=== PATIENT | male | born 1960 | race Caucasian/White ===

== ENCOUNTER 2016-10-25 11:10 | Inpatient (IN) | payer OTHER ==
[~2016-10-25] VITALS: Ht 172.7 cm; Wt 62.5 kg
[~2016-10-25 11:10] MED LIST: ALBU8.5H3 INH; AMLO5TAB4 PO; AZIT500T3 PO; BENZ100C70 PO; NEPH PO; NIFE60TA12 PO; SEVE800T10 PO
--- NOTE | 2016-10-25 12:58 | RADRPT ---
PROCEDURE: XR Chest. CLINICAL INDICATION: Chest pain TECHNIQUE: Single frontal view of the chest was obtained COMPARISON: 10/10/16 FINDINGS: The heart is enlarged. The thoracic aorta is calcified. There is mild pulmonary vascular congestion. There is no pleural effusion or pneumothorax. RPTAT: AA IMPRESSION: Mild to moderate cardiomegaly. Calcified aorta consistent with atherosclerotic disease. Mild pulmonary vascular congestion. .Vinicio Steward MD, MD Date Time Electronically viewed and signed by .Vinicio Steward MD, on 10/25/2016 12:58 .S/
[2016-10-25 13:12] LABS: BASOPHILS % 0.7 % (0.0-2.0); EOSINOPHILS # 0.1 10^3/ul (0.0-0.5); EOSINOPHILS % 1.5 % (0.0-7.0); HEMATOCRIT 32.1 % (42.0-52.0); HEMOGLOBIN 10.6 g/dl (14.0-18.0); LYMPHOCYTES # 0.9 10^3/ul (0.8-2.9); LYMPHOCYTES % 17.6 % (15.0-51.0); MEAN CORPUSCULAR HEMOGLOBIN 30.9 pg (29.0-33.0); MEAN CORPUSCULAR HGB CONC 33.1 g/dl (32.0-37.0); MEAN CORPUSCULAR VOLUME 93.4 fl (82.0-101.0); MEAN PLATELET VOLUME 7.9 fl (7.4-10.4); MONOCYTE # 0.5 10^3/ul (0.3-0.9); MONOCYTES % 9.2 % (0.0-11.0); NEUTROPHIL # 3.8 10^3/ul (1.6-7.5); PLATELET COUNT 81 10^3/UL (140-440); RED BLOOD COUNT 3.44 10^6/ul (4.70-6.10); RED CELL DISTRIBUTION WIDTH 16.3 % (11.5-14.5); UNCORRECTED WBC 5.4 10^3/ul (4.8-10.8); WHITE BLOOD COUNT 5.4 10^3/ul (4.8-10.8)
[2016-10-25 13:18] LABS: CONDITION 1; LH ANALYZER COMMENTS 1
[2016-10-25 13:21] LABS: ALBUMIN 4.1 g/dl (3.3-4.9); INR 1.11; POTASSIUM 4.5 mmol/L (3.5-5.1); PROTIME 14.3 Sec (12.2-14.2); PT RATIO 1.1
[2016-10-25 13:22] LABS: PARTIAL THROMBOPLASTIN TIME 37.5 Sec (25.0-35.0)
[2016-10-25 13:23] LABS: CREATININE 6.32 mg/dl (0.61-1.24)
[2016-10-25 13:24] LABS: ALBUMIN/GLOBULIN RATIO 0.85; TOTAL PROTEIN 8.9 g/dl (6.1-8.1)
[2016-10-25 13:25] LABS: CALCIUM 8.8 mg/dl (8.4-10.2)
[2016-10-25] MEDS ORDERED: DILTIAZEM-D5W 125MG/125ML DRIP 125 ML IV SCH (13:30)
[2016-10-25] MEDS ORDERED: DILTIAZEM 25 MG INJ IV ONE (13:30)
[2016-10-25] MEDS ORDERED: SOD CHLORIDE 0.9% 500 ML IV ONE (13:30)
[2016-10-25 13:39] LABS: TROPONIN-I 0.086 ng/ml (0.00-0.12)
--- NOTE | 2016-10-25 14:45 | ERA ---
ER Documentation Chief Complaint Date/Time DATE: 10/25/16 TIME: 14:39 Chief Complaint intermittent coughing, hx dialysis, seen here prior for same unresolved HPI Patient is a 56-year-old male who reports with a cough for the last month that is unresolved. It is a dry nonproductive cough for which she has been treated with some kind of cough syrup. He ran out of the cough syrup and is not improved so he comes back to the emergency department for reevaluation. He says he has seen his primary care physician and has received some kind of antibiotic which also did not help. He states he has not had a fever, chest congestion, sputum production, dyspnea, sore throat, or otalgia. He also denies any chest pain, palpitations, peripheral edema, or chest trauma. He says sometimes he does have dyspnea on exertion but it is not consistent. He has not missed any of his dialysis sessions. And the remainder of the systems are negative. ROS All systems reviewed and are negative except as per history of present illness. Medications Home Meds Active Scripts Benzonatate* (Tessalon Perle*) 100 Mg Capsule, 100 MG PO Q8H Y for COUGH, #30 CAP Prov:AUSTIN SERRATO PA-C 10/10/16 Albuterol Sulfate* (Proair HFA*) 8.5 Gm Hfa.aer.ad, 2 PUFF INH Q6H Y for WHEEZING AND SOB, #1 INHALER Prov:GENEVIEVE AGUILAR MD 09/26/16 Azithromycin* (Zithromax*) 500 Mg Tablet, 500 MG PO DAILY for 4 Days, TAB Prov:GENEVIEVE AGUILAR MD 09/26/16 Reported Medications Amlodipine Besylate* (Norvasc*) 5 Mg Tablet, 5 MG PO DAILY, TAB 09/26/16 Nifedipine* (Nifedical XL*) 60 Mg/Bottle Tab.osm.24, 60 MG PO BID, TAB 04/12/16 Sevelamer Hcl* (Renagel*) 800 Mg Tablet, 3200 MG PO WITH MEALS, TAB 03/23/15 Multivit/Ca Carb/B Cmplx/Fa* (Angelica-Janette*) 1 Tab Tab, 1 TAB PO DAILY, TAB 03/23/15 Allergies Allergies: Coded Allergies: No Known Allergy (Unverified , 09/26/16) PMhx/Soc History of Surgery: Yes (fistula placement) Anesthesia Reaction: No Hx Neurological Disorder: No Hx Respiratory Disorders: No Hx Cardiac Disorders: Yes (HTN) Hx Psychiatric Problems: No Hx Miscellaneous Medical Probl: Yes (ESRD W/ DIALYSIS-[facility] Hx Alcohol Use: No Hx Substance Use: No Hx Tobacco Use: No Smoking Status: Former smoker FmHx Family History: coronary disease Physical Exam Vitals Vital Signs Date Time Temp Pulse Resp B/P Pulse Ox O2 Delivery O2 Flow Rate FiO2 10/25/16 14:50 97.8 114 20 128/96 100 Nasal Cannula 1.0 10/25/16 14:34 97.8 127 20 121/88 100 Nasal Cannula 1.0 10/25/16 13:15 97.8 115 20 124/92 100 Nasal Cannula 1.0 10/25/16 13:00 Nasal Cannula 1 10/25/16 11:17 97.8 133 20 117/73 100 Physical Exam Const: Well-developed well-nourished male sitting on the bed with no evidence for respiratory distress Head: Atraumatic normocephalic Eyes: Normal Conjunctiva ENT: Normal External Ears, Nose and Mouth. Neck: Full range of motion..~ No meningismus. No JVD noted Resp: Clear to auscultation bilaterally, no tachypnea, nasal flaring, or retractions noted. Cardio: Patient is noted to be tachycardic with an irregular rhythm most consistent with atrial fibrillation Abd: Soft, non tender, non distended. Normal bowel sounds Skin: No petechiae or rashes Back: No midline or flank tenderness Ext: No cyanosis, or edema, skin appears dry Neur: Awake and alert Psych: Normal Mood and Affect Result Diagram: 10/25/16 1300 10/25/16 1300 Results 24 hrs Laboratory Tests Test 10/25/16 13:00 10/25/16 13:01 Activated Partial Thromboplast Time 37.5Sec Alanine Aminotransferase (ALT/SGPT) 67IU/L Albumin 4.1g/dl Albumin/Globulin Ratio 0.85 Alkaline Phosphatase 113IU/L Anion Gap 22 Aspartate Amino Transf (AST/SGOT) 71IU/L Basophils # 0.010^3/ul Basophils % 0.7% Blood Morphology Comment Blood Urea Nitrogen 34mg/dl Calcium Level 8.8mg/dl Carbon Dioxide Level 30mmol/L Chloride Level 96mmol/L Creatinine 6.32mg/dl Direct Bilirubin 0.00mg/dl Eosinophils # 0.110^3/ul Eosinophils % 1.5% Globulin 4.80g/dl Glucose Level 92mg/dl Hematocrit 32.1% Hemoglobin 10.6g/dl INR International Normalized Ratio 1.11 Indirect Bilirubin 0.0mg/dl Lymphocytes # 0.910^3/ul Lymphocytes % 17.6% Mean Corpuscular Hemoglobin 30.9pg Mean Corpuscular Hemoglobin Concent 33.1g/dl Mean Corpuscular Volume 93.4fl Mean Platelet Volume 7.9fl Monocytes # 0.510^3/ul Monocytes % 9.2% Neutrophils # 3.810^3/ul Neutrophils % 71.0% Nucleated Red Blood Cells # 0.010^3/ul Nucleated Red Blood Cells % 0.0/100WBC Platelet Count 8110^3/UL Potassium Level 4.5mmol/L Prothrombin Time 14.3Sec Prothrombin Time Ratio 1.1 Red Blood Count 3.4410^6/ul Red Cell Distribution Width 16.3% Sodium Level 143mmol/L Total Bilirubin 0.0mg/dl Total Protein 8.9g/dl Troponin I 0.086ng/ml White Blood Count 5.410^3/ul Bedside Glucose 92mg/dL Current Medications Medications (Trade) Dose Ordered Sig/Jitendra Route PRN Reason Start Time Stop Time Status Last Admin Dose Admin Sodium Chloride (NS) 500 ml @ 500 mls/hr Q1H ONCE IV 10/25/16 13:30 10/25/16 14:29 DC 10/25/16 13:29 Diltiazem HCl 16 mg 16 mg ONCE ONCE IV 10/25/16 13:30 10/25/16 13:31 DC Diltiazem HCl (Cardizem-D5W 125 Mg/125 ml Drip) 125 ml @ 5 mls/hr TITRATE IV 10/25/16 13:30 10/25/16 14:32 Procedures/MDM Medical decision making: Viral URI, bronchitis, pulmonary edema, atrial fibrillation with RVR, atypical ID, renal failure EKG: Rate/Rhythm: Atrial fibrillation with RVR, ventricular rate noted to be around 130 bpm QRS, ST, T-waves: No changes consistent w/ acute ischemia Impression: No evidence of ischemia 1443: Patient is currently on a diltiazem drip at 5 mg/h. His rate at this time is approximately 100-110 bpm. His blood pressure is stable systolically. I will consult his primary care physician to have him admitted to the hospital as his A. fib appears to be a new rhythm for him. Departure Diagnosis: Primary Impression: Cough Additional Impressions: Atrial fibrillation with rapid ventricular response End stage chronic kidney disease DILMA LOPEZ Oct 25, 2016 14:45
[2016-10-25 14:50] VITALS: TEMP 97.8
--- NOTE | 2016-10-25 16:15 | QN ---
Documentation Comment ESRD AFIB HTN ANEMIA PLAN PER ORDER CARDIOLOGY CONSULT MARCE CARDOZO MD Oct 25, 2016 16:15
[2016-10-25] MEDS ORDERED: METO-448 PO (16:18)
[2016-10-25] MEDS ORDERED: ATOR20TA38 PO (16:20)
[2016-10-25] MEDS ORDERED: HYDROCODONE/APAP (5/325) TAB PO PRN (16:30)
[2016-10-25] MEDS ORDERED: NACL 0.9% 3 ML SYG IV SCH (16:30)
[2016-10-25] MEDS ORDERED: ACETAMINOPHEN 325 MG TAB PO PRN (16:30)
[2016-10-25] MEDS ORDERED: ONDANSETRON 4 MG INJ IV PRN (16:30)
[2016-10-25] MEDS ORDERED: DOCUSATE SODIUM 100 MG CAP PO PRN (16:30)
[2016-10-25] MEDS ORDERED: ALBUTEROL HFA 8 GM INHALER INH PRN (16:30)
[2016-10-25 17:55] LABS: TROPONIN-I 0.081 ng/ml (0.00-0.12)
[2016-10-25 18:57] LABS: CK-MB 1.67 ng/ml (0.0-2.4)
[2016-10-25] MEDS ORDERED: HEPARIN 1000 UNITS/ML 10 ML INJ IV SCH (20:00)
[2016-10-25] MEDS ORDERED: HEPARIN 1000 UNITS/ML 10 ML INJ IV PRN (20:00)
[2016-10-25] MEDS ORDERED: DIGOXIN 500 MCG INJ IV ONE (20:00)
[2016-10-25] MEDS ORDERED: METOPROLOL 5 MG INJ IV PRN (20:00)
[2016-10-25] MEDS ORDERED: HEPARIN 1000 UNITS/ML 10 ML INJ IV ONE (20:00)
[2016-10-25 20:07] LABS: TROPONIN-I 0.086 ng/ml (0.00-0.12)
[2016-10-25 20:09] LABS: CK-MB 1.48 ng/ml (0.0-2.4)
[2016-10-25] MEDS: HEPARIN 25000 UNITS/D5W 250 ML IV SCH (20:15)
[2016-10-25 22:02] VITALS: PULSE 98
[2016-10-25] MEDS: METOPROLOL 50 MG TAB PO SCH (22:21)
[2016-10-25] MEDS: NIFEdipine (XL) 60 MG TAB PO SCH (22:21)
[2016-10-25 22:40] VITALS: BP 127/64; PULSE 121; RESP 18
[2016-10-25 23:23] LABS: CK-MB 1.82 ng/ml (0.0-2.4)
[2016-10-25 23:26] LABS: TROPONIN-I 0.173 ng/ml (0.00-0.12)
--- NOTE | 2016-10-25 23:43 | HP ---
Date/Time of Note Date/Time of Note DATE: 10/25/16 TIME: 23:40 Assessment/Plan VTE Prophylaxis VTE Prophylaxis Intervention: heparin Lines/Catheters IV Catheter Type (from Nrs): Peripheral IV Assessment/Plan Chief Complaint/Hosp Course AFIB HTN ESRD ANEMIA HX CABG PLAN PER ORDER CARDIO Problems: HPI/ROS Admit Date/Time Admit Date/Time Oct 25, 2016 at 16:29 ROS Constitutional: other (sob+) Eyes: no complaints ENT: no complaints Respiratory: shortness of breath (+) Cardiovascular: palpitations (+), No chest pain, No orthopenea Gastrointestinal: no complaints Genitourinary: no complaints Musculoskeletal: no complaints Skin: no complaints Neurologic: no complaints Endocrine: no complaints Lymphatic: no complaints Psychological: no complaints Immunologic: no complaints PMH/Family/Social Past Medical History Medical History: coronary artery disease, high cholesterol, hypertension, renal disease Past Surgical History Past Surgical Hx: other (cabg) Family History Significant Family History: no pertinent family hx Social History Alcohol Use: none Smoking Status: Former smoker Exam/Review of Systems Vital Signs Vitals Vital Signs Date Time Temp Pulse Resp B/P Pulse Ox O2 Delivery O2 Flow Rate FiO2 10/25/16 22:40 97.8 121 18 127/64 97 Room Air 10/25/16 20:00 2.0 28 Exam Constitutional: alert, oriented Psych: nl mood/affect, no complaints Head: atraumatic, normocephalic Eyes: EOMI, nl conjunctiva, nl lids ENMT: nl external ears & nose, nl lips & teeth, nl nasal mucosa & septum Neck: non-tender, supple Respiratory: clear to auscultation, normal air movement Cardiovascular: irregular rhythm Gastrointestinal: nl liver, spleen, non-tender, soft Genitourinary - Male: No CVA tenderness Musculoskeletal: nl extremities to inspection Extremities: normal pulses Neurological: CLINICAL NURSING INTERN II-XII intact, nl mental status, nl speech, nl strength Labs Result Diagram: 10/25/16 1300 10/25/16 1300 Medications Medications Current Medications Diltiazem HCl (Cardizem-D5W 125 Mg/125 ml Drip) 125 ml @ 5 mls/hr TITRATE IV Last administered on 10/25/16t 14:32; Admin Dose 5 MLS/HR; Start 10/25/16 at 13: 30 Acetaminophen (Tylenol Tab) 650 mg Q6H PRN PO PAIN LEVEL 1-3 OR FEVER; Start at 16:30 Acetaminophen/ Hydrocodone Bitart ([place] (5/325)) 1 tab Q6H PRN PO MODERATE PAIN LEVEL 4-6; Start 10/25/16 at 16:30 Docusate Sodium (Colace) 100 mg Q12H PRN PO CONSTIPATION; Start 10/25/16 at 16: 30 Pantoprazole (Protonix Tab) 40 mg DAILY@06 PO ; Start 10/26/16 at 06:00 Albuterol (Ventolin Hfa) 2 puff Q6H PRN INH WHEEZING AND SOB; Start 10/25/16 at 16:30 Benzonatate (Tessalon) 100 mg Q8H PRN PO COUGH; Start 10/25/16 at 16:30 Multivit/Ca Carb/ B Cmplx/FA/Prenat (Angelica-Janette) 1 tab DAILY PO ; Start 10/26/16 at 09:00 Nifedipine (Procardia Xl) 60 mg BID PO Last administered on 10/25/16 22:21; Admin Dose 60 MG; Start 10/25/16 at 21:00 Metoprolol Tartrate 50 mg 50 mg BID PO Last administered on 10/25/16 22:21; Admin Dose 50 MG; Start 10/25/16 at 21:00 Heparin Sodium (Porcine) (Heparin 05753 Units/250 ml) 250 ml @ 0 mls/hr Q24H IV Last administered on 10/25/16 20:15; Admin Dose 7.5 MLS/HR; Start 10/25/16 at 20:00 Heparin Sodium (Porcine) (Heparin (1000 Units/ml)) PRN PRN IV PENDING LAB VALUE; Start 10/25/16 at 20:00 Metoprolol Tartrate (Lopressor) 5 mg Q4H PRN IV HR>110 Hold SBP<100; Start 09/29 at 20:00 MARCE CARDOZO MD Oct 25, 2016 23:43
[2016-10-26] VITALS (18 sets, daily range): BP systolic 96–118; BP diastolic 54–77; PULSE 60–125; RESP 16–19; Ht 172.7 cm; Wt 62.5 kg
[2016-10-26] MEDS: ACETAMINOPHEN 325 MG TAB PO PRN ×2 (00:31→10:05)
[2016-10-26] MEDS: BENZONATATE 100 MG CAP PO PRN ×3 (01:04→21:00)
[2016-10-26 03:56] LABS: CK-MB 1.7 ng/ml (0.0-2.4); TROPONIN-I 0.316 ng/ml (0.00-0.12)
[2016-10-26] MEDS: HEPARIN 25000 UNITS/D5W 250 ML IV SCH (04:23)
[2016-10-26 04:52] LABS: CHOL/HDL RATIO 1.8 RATIO
[2016-10-26] MEDS: PANTOPRAZOLE (EC) 40 MG TAB PO SCH (05:12)
[2016-10-26] MEDS: METOPROLOL 50 MG TAB PO SCH ×2 (09:00→20:58)
[2016-10-26] MEDS ORDERED: ENOXAPARIN 30 MG/0.3 ML SYG SC SCH (09:00)
[2016-10-26] MEDS ORDERED: AMLODIPINE 5 MG TAB PO SCH (09:00)
[2016-10-26] MEDS: NIFEdipine (XL) 60 MG TAB PO SCH (09:00)
[2016-10-26] MEDS: MULTIVIT/CA CARB/B CMPLX/FA TAB PO SCH (09:56)
[2016-10-26] MEDS: SEVELAMER 800 MG TAB PO SCH ×3 (09:57→18:46)
--- NOTE | 2016-10-26 09:57 | CONS ---
DATE OF ADMISSION: 10/25/2016 DATE OF CONSULTATION: 10/25/2016 CARDIOLOGY CONSULTATION REASON FOR CONSULTATION: Atrial fibrillation, rapid ventricular response, history of cardiomyopathy , chest pain. REQUESTING PHYSICIAN: Don Cardozo MD HISTORY OF PRESENT ILLNESS: Mr. Ray is a 56-year-old male with a history of hypertension, non -ST elevation myocardial infarction in 04/2016, at which time he refused cardiac catheterization, en d-stage renal disease on hemodialysis, anemia requiring transfusions, recent coronary artery bypass graft surgery 06/2016 in [place], now presents with complaints of cough and associated chest pain wi th cough and associated shortness of breath. Upon arrival, temperature 97.8, blood pressure 113/73, pulse 133, respiratory rate 20, saturating 100%. The patient's labs showed white count 5.4, hemogl obin 10.6, platelet count 81. Sodium 142, potassium 4.5, creatinine 6.3, BUN 34. Troponin negative . AST 71, ALT 67. INR of 1.1. The patient underwent a chest x-ray revealing [id number] card iomegaly, calcified aorta, mild pulmonary vascular congestion. The patient's electrocardiogram reve aled rhythm most consistent with atrial fibrillation, rate of 116, normal axis, normal intervals, wi th nonspecific ____ diffusely. The patient subsequently has been treated with IV hydration, Diltiaz em ____ mg IV push x1 and has been placed on a Diltiazem drip. PAST MEDICAL HISTORY: As above in HPI. MEDICATIONS PRIOR TO ADMIT: 1. Norvasc 10 mg daily. 2. Atorvastatin 20 mg daily. 3. Metoprolol 25 mg p.o. b.i.d. 4. Renagel 3200 with meals. 5. Angelica-Janette. MEDICATIONS CURRENTLY IN HOSPITAL: 1. Lovenox ____ subQ daily. 2. Norvasc. 3. Angelica-Janette. 4. Renagel. 5. Protonix. 6. Procardia 60 mg p.o. b.i.d. 7. Tylenol. 8. Albuterol. 9. Zofran. 10. Diltiazem drip. ALLERGIES: NO KNOWN DRUG ALLERGIES. SOCIAL HISTORY: No tobacco, ETOH, or illicit drug use. FAMILY HISTORY: No history of sudden cardiac or early CAD. REVIEW OF SYSTEMS: As above in HPI. CONSTITUTIONAL: No fevers, chills. PULMONARY: No current shortness of breath. CARDIOVASCULAR: Intermittent chest pain. GASTROINTESTINAL: No vomiting. GENITOURINARY: No hematuria. MUSCULOSKELETAL: Degenerative joint disease. PSYCHIATRIC: The patient denies depression. NEUROLOGIC: No documented history of CVA. PHYSICAL EXAMINATION VITAL SIGNS: Temperature 97.8, blood pressure of most recent 98/____, pulse 75, respirations 18, sa turation 100%. GENERAL: The patient is alert, awake and complaining of cough, mild shortness breath and chest pain . NECK: JVP of 10 to 11 cm water. CHEST: Bibasilar crackles. HEART: Irregularly irregular I/ systolic murmur, nondisplaced PMI. ABDOMEN: Positive bowel sounds, soft. EXTREMITIES: Trace edema, 1+ pulses bilateral posterior tibial. LABORATORY DATA: As above in HPI. No further labs for my review at this time. IMAGING STUDIES: As above in HPI. No further imaging studies for my review at this time. ELECTROCARDIOGRAM: As above in HPI. No further electrocardiograms for my review at this time. IMPRESSION: 1. Atrial fibrillation with rapid ventricular response, improving on diltiazem at this time. 2. Congestive heart failure with preserved left ventricular ejection fraction by most recent echo 0 04/2016. 3. Abnormal electrocardiogram, assess for acute coronary syndrome. 4. History of coronary artery disease, status post coronary artery bypass grafting x2 per patient 0 06/2016 in [place]. 5. Hypertension with currently borderline hypotension. 6. Dyslipidemia. 7. End-stage renal disease, on hemodialysis. 8. History of prior myocardial infarction. 9. Anemia. RECOMMENDATIONS: 1. At this time, would admit patient to telemetry monitoring to follow rhythm and rate control clos conor. 2. Would resume the patient's baseline beta rqauel to improve heart rate control in the setting of known coronary artery disease. We will give patient additional digoxin x1, IV push to improve over all heart rate control acutely. 3. Will initiate patient on anticoagulation for prevention of thromboembolic events in the setting of atrial fibrillation given the patient's comorbid risk factors place him at increased risk for thr ombolic complications in the setting of atrial fibrillation, and thus benefit from systemic anticoag ulation if possible. 4. Continue the patient's current Procardia for control of blood pressure. Will discontinue the pa tient's second calcium channel raquel, Norvasc. 5. Will complete the patient's rule out for myocardial infarction to ensure the patient's chest wale n is due to cough and not due to acute coronary syndromes. 6. After initiation of beta raquel and digoxin, we will then attempt to wean off Diltiazem drip. 7. Hemodialysis aggressively for volume removal. 8. Consider repeat 2D echo for reassessment of patient's ejection fraction. Thank you for allowing me to take part in the care of this patient. I will continue to follow along very closely with you. Further recommendations will be made as the patient progresses through his inpatient hospital clinical course. Dictated By: NAUN MILES/VIVIAN Conf#: [id number] DID#: [id number] CC: DON CARDOZO MD;*End*
--- NOTE | 2016-10-26 13:14 | PN ---
Date/Time of Note Date/Time of Note DATE: 10/26/16 TIME: 13:13 Assessment/Plan VTE Prophylaxis VTE Prophylaxis Intervention: heparin Lines/Catheters IV Catheter Type (from Nrsg): Peripheral IV Assessment/Plan Chief Complaint/Hosp Course AFIB HTN ESRD ANEMIA HX CABG PLAN PER ORDER CARDIO hd Problems: Subjective 24 Hr Interval Summary Respiratory: no complaints Cardiovascular: no complaints Gastrointestinal: no complaints Exam/Review of Systems Vital Signs Vitals Vital Signs Date Time Temp Pulse Resp B/P Pulse Ox O2 Delivery O2 Flow Rate FiO2 10/26/16 12:12 98.3 69 17 99/56 95 10/26/16 04:24 Room Air 10/25/16 20:00 2.0 28 Intake and Output 10/25/16 10/25/16 10/26/16 15:00 23:00 07:00 Intake Total 200 ml Balance 200 ml Exam Respiratory: clear to auscultation Cardiovascular: regular rate and rhythm Gastrointestinal: bowel sounds (+), soft Extremities: No edema Results Result Diagram: 10/25/16 1300 10/25/16 1300 Results 24 hrs Laboratory Tests Test 10/25/16 16:25 10/25/16 19:00 10/25/16 22:30 10/26/16 02:57 Creatine Kinase 68 61 68 63 Creatine Kinase Index 2.5 2.4 2.7 2.7 Creatinine Kinase MB (Mass) 1.67 1.48 1.82 1.70 Troponin I 0.081 0.086 0.173 *H 0.316 *H Activated Partial Thromboplast Time 94.4 *H Cholesterol Level 88 L Cholesterol/HDL Ratio 1.8 HDL Cholesterol 48 LDL Cholesterol, Calculated 27 Triglycerides Level 67 Test 10/26/16 09:30 Activated Partial Thromboplast Time 73.6 *H Medications Medications Current Medications Diltiazem HCl (Cardizem-D5W 125 Mg/125 ml Drip) 125 ml @ 5 mls/hr TITRATE IV Last administered on 10/25/16 14:32; Admin Dose 5 MLS/HR; Start 10/25/16 at 13: 30 Acetaminophen (Tylenol Tab) 650 mg Q6H PRN PO PAIN LEVEL 1-3 OR FEVER Last administered on 10/26/16 10:05; Admin Dose 650 MG; Start 10/25/16 at 16:30 Acetaminophen/ Hydrocodone Bitart (Alpha (5/325)) 1 tab Q6H PRN PO MODERATE PAIN LEVEL 4-6; Start 10/25/16 at 16:30 Docusate Sodium (Colace) 100 mg Q12H PRN PO CONSTIPATION; Start 10/25/16 at 16: 30 Pantoprazole (Protonix Tab) 40 mg DAILY@06 PO Last administered on 10/26/16 05 :12; Admin Dose 40 MG; Start 10/26/16 at 06:00 Albuterol (Ventolin Hfa) 2 puff Q6H PRN INH WHEEZING AND SOB; Start 10/25/16 at 16:30 Benzonatate (Tessalon) 100 mg Q8H PRN PO COUGH Last administered on 10/26/16 10:05; Admin Dose 100 MG; Start 10/25/16 at 16:30 Multivit/Ca Carb/ B Cmplx/FA/Prenat (Angelica-Janette) 1 tab DAILY PO Last administered on 10/26/16 09:56; Admin Dose 1 TAB; Start 10/26/16 at 09:00 Nifedipine (Procardia Xl) 60 mg BID PO Last administered on 10/25/16 22:21; Admin Dose 60 MG; Start 10/25/16 at 21:00 Metoprolol Tartrate 50 mg 50 mg BID PO Last administered on 10/25/16 22:21; Admin Dose 50 MG; Start 10/25/16 at 21:00 Heparin Sodium (Porcine) (Heparin 32958 Units/250 ml) 250 ml @ 0 mls/hr Q24H IV Last administered on 10/26/16 04:23; Admin Dose 7 MLS/HR; Start 10/25/16 at 20:00 Heparin Sodium (Porcine) (Heparin (1000 Units/ml)) PRN PRN IV PENDING LAB VALUE; Start 10/25/16 at 20:00 Metoprolol Tartrate (Lopressor) 5 mg Q4H PRN IV HR>110 Hold SBP<100; Start 09/29 at 20:00 MARCE CARDOZO MD Oct 26, 2016 13:13
[2016-10-26 17:07] LABS: POTASSIUM 3.6 mmol/L (3.5-5.1)
[2016-10-26 17:09] LABS: CREATININE 5.68 mg/dl (0.61-1.24)
[2016-10-26 17:10] LABS: CALCIUM 8.4 mg/dl (8.4-10.2)
--- NOTE | 2016-10-26 18:19 | CONS ---
Date/Time of Note Date/Time of Note DATE: 10/26/16 TIME: 18:12 Assessment/Plan Assessment/Plan Chief Complaint/Hosp Course IMPRESSION: 1. Atrial fibrillation with rapid ventricular response-improved on PO BB. 2. Congestive heart failure with preserved left ventricular ejection fraction by most recent echo 04/2016. 3. Abnormal electrocardiogram, assess for acute coronary syndrome. 4. History of coronary artery disease, status post coronary artery bypass grafting x2 per patient 06/2016 in [place]. 5. Hypertension with currently borderline hypotension. 6. Dyslipidemia. 7. End-stage renal disease, on hemodialysis. 8. History of prior myocardial infarction. 9. Anemia. 10.Positive troponin-likley demand event in the setting of AF/ESRD Recc: -Tele -serial ecg's -F/U repeat echo -Patient needs to be given PO BB for HR control -Decrease dose of procardia xl and f/u BP closely -HD for volume removal -Continue heparin for AF at this time -Will consider lexiscan to assess significance of positive troponin Problems: Consultation Date/Type/Reason Admit Date/Time Oct 25, 2016 at 16:29 Initial Consult Date 10/25/2016 Type of Consultation: Cardiology Reason for Consultation AF Referring Provider: MARCE CARDOZO Exam/Review of Systems Vital Signs Vitals Vital Signs Date Time Temp Pulse Resp B/P Pulse Ox O2 Delivery O2 Flow Rate FiO2 10/26/16 17:43 89 10/26/16 16:02 97.2 19 103/66 94 10/26/16 04:24 Room Air 10/25/16 20:00 2.0 28 Intake and Output 10/25/16 10/25/16 10/26/16 15:00 23:00 07:00 Intake Total 200 ml Balance 200 ml Exam Review of Systems: CONSTITUTIONAL: No fevers, chills. PULMONARY: cough CARDIOVASCULAR: No chest pain/palpitations GASTROINTESTINAL: No nausea/vomiting. GENITOURINARY: No hematuria/dysuria. MUSCULOSKELETAL: No myagias/arthalgias. PSYCHIATRIC: The patient denies depression. NEUROLOGIC: No weakness Constitutional: alert Psych: no complaints Head: normocephalic ENMT: mucosa pink and moist Neck: jvd (9 cm water), supple Respiratory: diminished breath sounds (at bases/B) Cardiovascular: regular rate and rhythm Gastrointestinal: non-tender, soft Musculoskeletal: muscle tone (normal) Extremities: edema (none) Neurological: other (No focal deficits) Results Result Diagram: 10/25/16 1300 10/26/16 3829 Results 24 hrs Laboratory Tests Test 10/25/16 19:00 10/25/16 22:30 10/26/16 02:57 10/26/16 09:30 Creatine Kinase 61 68 63 Creatine Kinase Index 2.4 2.7 2.7 Creatinine Kinase MB (Mass) 1.48 1.82 1.70 Troponin I 0.086 0.173 *H 0.316 *H Activated Partial Thromboplast Time 94.4 *H 73.6 *H Cholesterol Level 88 L Cholesterol/HDL Ratio 1.8 HDL Cholesterol 48 LDL Cholesterol, Calculated 27 Triglycerides Level 67 Test 10/26/16 16:37 Anion Gap 18 H Blood Urea Nitrogen 34 H Calcium Level 8.4 Carbon Dioxide Level 28 Chloride Level 98 Creatinine 5.68 H Glucose Level 156 Potassium Level 3.6 Sodium Level 140 Medications Medications Current Medications Diltiazem HCl (Cardizem-D5W 125 Mg/125 ml Drip) 125 ml @ 5 mls/hr TITRATE IV Last administered on 10/25/16 14:32; Admin Dose 5 MLS/HR; Start 10/25/16 at 13: 30 Acetaminophen (Tylenol Tab) 650 mg Q6H PRN PO PAIN LEVEL 1-3 OR FEVER Last administered on 10/26/16 10:05; Admin Dose 650 MG; Start 10/25/16 at 16:30 Acetaminophen/ Hydrocodone Bitart ([place] (5/325)) 1 tab Q6H PRN PO MODERATE PAIN LEVEL 4-6; Start 10/25/16 at 16:30 Docusate Sodium (Colace) 100 mg Q12H PRN PO CONSTIPATION; Start 10/25/16 at 16: 30 Pantoprazole (Protonix Tab) 40 mg DAILY@06 PO Last administered on 10/26/16 05 :12; Admin Dose 40 MG; Start 10/26/16 at 06:00 Albuterol (Ventolin Hfa) 2 puff Q6H PRN INH WHEEZING AND SOB; Start 10/25/16 at 16:30 Benzonatate (Tessalon) 100 mg Q8H PRN PO COUGH Last administered on 10/26/16 10:05; Admin Dose 100 MG; Start 10/25/16 at 16:30 Multivit/Ca Carb/ B Cmplx/FA/Prenat (Angelica-Janette) 1 tab DAILY PO Last administered on 10/26/16 09:56; Admin Dose 1 TAB; Start 10/26/16 at 09:00 Nifedipine (Procardia Xl) 60 mg BID PO Last administered on 10/25/16 22:21; Admin Dose 60 MG; Start 10/25/16 at 21:00 Metoprolol Tartrate 50 mg 50 mg BID PO Last administered on 10/25/16 22:21; Admin Dose 50 MG; Start 10/25/16 at 21:00 Heparin Sodium (Porcine) (Heparin 50827 Units/250 ml) 250 ml @ 0 mls/hr Q24H IV Last administered on 10/26/16 04:23; Admin Dose 7 MLS/HR; Start 10/25/16 at 20:00 Heparin Sodium (Porcine) (Heparin (1000 Units/ml)) PRN PRN IV PENDING LAB VALUE; Start 10/25/16 at 20:00 Metoprolol Tartrate (Lopressor) 5 mg Q4H PRN IV HR>110 Hold SBP<100; Start 09/29 at 20:00 NAUN SANABRIA Oct 26, 2016 18:18
--- NOTE | 2016-10-26 19:38 | RADRPT ---
Echocardiogram Report Patient Name: SIERRA ALATORRE Gender: Male Date: 1960 Study Date: 26-Oct-2016 Content Designer: [facility] Location: [id number] Ref. Physician: NAUN ROJO Quality: Adequate Procedures: Transthoracic echocardiogram with complete 2D, M-Mode, and doppler examination. Indications: Congestive Heart Failure. 2D/M Mode Doppler Measurement Value Normal Ranges Measurement Value Normal Ranges LVIDd 2D 4.8 3.5 - 5.6 cm AV Peak Usama 1.4 m/sec LVIDs 2D 4.1 2.1 - 4.1 cm AV Peak PG 7.0 mmHg FS 2D 15.8 % LVOT Peak Usama 0.9 m/sec LVPWd 2D 1.3 0.6 - 1.1 cm LVOT Peak PG 3.0 mmHg IVSd 2D 1.4 0.6 - 1.1 cm MV E Peak Usama 1.6 m/sec IVS/LVPW 2D 1.0 MV A Peak Usama 0.4 m/sec AoR Diam 2D 3.0 2.0 - 3.7 cm MV E/A 3.7 LA/Ao 2D 2 0 - 1 MV Decel Time 137 msec EDV 2D 112.0 cm3 MV E/A 3.7 ESV 2D 66.9 cm3 MR Peak PG 90.0 mmHg LA Dimen 2D 4.8 2.3 - 4.0 cm MR Peak Usama 4.7 m/sec TR Peak Usama 2.6 m/sec TR Peak PG 27.0 mmHg Findings Left Ventricle: Normal left ventricular systolic function. Normal left ventricular cavity size. Mild concentric left ventricular hypertrophy. Ejection fraction is visually estimated at 55 %. Tissue Doppler/Mitral Doppler indices are consistent with restrictive physiology with markedly elevated left atrial pressure (Stage IIIIV diastolic dysfunction). These segments of the LV are hypokinetic apex. Right Ventricle: Normal right ventricular size. Left Atrium: There is moderate enlargement of left atrium. Right Atrium: There is mild enlargement of right atrium. Mitral Valve: Mild mitral leaflet calcification. Mild mitral annular calcification. Mild to moderate mitral valve regurgitation. Aortic Valve: Aortic sclerosis without stenosis. Aortic cusps appear mildly calcified. Trileaflet aortic valve. Trace aortic valve regurgitation. Tricuspid Valve: Estimated peak PA systolic pressure 44 mmHg. Tricuspid valve appears mildly thickened. There is mild tricuspid regurgitation. Pericardium: Normal pericardium with no significant pericardial effusion. Left pleural effusion seen. Aorta: Normal aortic root. IVC: Dilated inferior vena cava with poor inspiratory collapse consistent with elevated right atrial pressures. Conclusions 1.Normal left ventricular systolic function. Normal left ventricular cavity size. Mild concentric left ventricular hypertrophy. Ejection fraction is visually estimated at 55 %. Tissue Doppler/Mitral Doppler indices are consistent with restrictive physiology with markedly elevated left atrial pressure (Stage III-IV diastolic dysfunction). These segments of the LV are hypokinetic apex. 2.There is moderate enlargement of left atrium. 3.There is mild enlargement of right atrium. 4.Mild mitral leaflet calcification. Mild mitral annular calcification. Mild to moderate mitral valve regurgitation. 5.Aortic sclerosis without stenosis. Aortic cusps appear mildly calcified. Trileaflet aortic valve. Trace aortic valve regurgitation. 6.Estimated peak PA systolic pressure 44 mmHg. Tricuspid valve appears mildly thickened. There is mild tricuspid regurgitation. Electronically Signed By: Naun Rojo 26-Oct-2016 19:37:39 -0800 Patient Name: SIERRA ALATORRE Study Date: 26-Oct-[id number]
[2016-10-26] MEDS: NIFEdipine (XL) 30 MG TAB PO SCH (20:58)
[2016-10-27] VITALS (8 sets, daily range): BP systolic 109–128; BP diastolic 55–82; PULSE 90–129; RESP 17–20
[2016-10-27 04:03] LABS: BASOPHILS % 0.6 % (0.0-2.0); EOSINOPHILS # 0.1 10^3/ul (0.0-0.5); EOSINOPHILS % 1.4 % (0.0-7.0); HEMATOCRIT 27.8 % (42.0-52.0); HEMOGLOBIN 9.2 g/dl (14.0-18.0); LYMPHOCYTES # 0.9 10^3/ul (0.8-2.9); LYMPHOCYTES % 19.1 % (15.0-51.0); MEAN CORPUSCULAR HEMOGLOBIN 30.7 pg (29.0-33.0); MEAN CORPUSCULAR HGB CONC 33.2 g/dl (32.0-37.0); MEAN CORPUSCULAR VOLUME 92.6 fl (82.0-101.0); MEAN PLATELET VOLUME 7.6 fl (7.4-10.4); MONOCYTE # 0.5 10^3/ul (0.3-0.9); MONOCYTES % 10.7 % (0.0-11.0); NEUTROPHIL # 3.3 10^3/ul (1.6-7.5); NEUTROPHILS % 68.2 % (39.0-77.0); RED CELL DISTRIBUTION WIDTH 16.2 % (11.5-14.5); UNCORRECTED WBC 4.9 10^3/ul (4.8-10.8); WHITE BLOOD COUNT 4.9 10^3/ul (4.8-10.8)
[2016-10-27 04:09] LABS: CONDITION 1; LH ANALYZER COMMENTS 1; PLATELET COUNT 62 10^3/UL (140-440)
[2016-10-27 04:36] LABS: CK-MB 0.79 ng/ml (0.0-2.4); TROPONIN-I 0.244 ng/ml (0.00-0.12)
[2016-10-27] MEDS: PANTOPRAZOLE (EC) 40 MG TAB PO SCH (06:44)
[2016-10-27] MEDS: SEVELAMER 800 MG TAB PO SCH ×3 (08:00→18:05)
[2016-10-27] MEDS: NIFEdipine (XL) 30 MG TAB PO SCH ×3 (09:00→21:47)
[2016-10-27] MEDS: MULTIVIT/CA CARB/B CMPLX/FA TAB PO SCH (09:00)
[2016-10-27] MEDS: METOPROLOL 50 MG TAB PO SCH ×3 (09:00→21:47)
[2016-10-27] MEDS ORDERED: REGADENOSON 0.4 MG/5 ML SYG ONE (11:06)
--- NOTE | 2016-10-27 11:37 | CONS ---
Date/Time of Note Date/Time of Note DATE: 10/27/16 TIME: 11:34 Assessment/Plan Assessment/Plan Chief Complaint/Hosp Course IMPRESSION: 1. Atrial fibrillation with rapid ventricular response-improved on PO BB. 2. Congestive heart failure with preserved left ventricular ejection fraction by most recent echo 04/2016. 3. Abnormal electrocardiogram, assess for acute coronary syndrome. 4. History of coronary artery disease, status post coronary artery bypass grafting x2 per patient 06/2016 in [place]. 5. Hypertension with currently borderline hypotension. 6. Dyslipidemia. 7. End-stage renal disease, on hemodialysis. 8. History of prior myocardial infarction. 9. Anemia. 10.Positive troponin-likley demand event in the setting of AF/ESRD Recc: -Tele -serial ecg's -Continue BB/procardia -HD for volume removal -Continue heparin for AF at this time -Lexiscan to assess significance of positive troponin today Problems: Consultation Date/Type/Reason Admit Date/Time Oct 25, 2016 at 16:29 Initial Consult Date 10/25/2016 Type of Consultation: Cardiology Reason for Consultation Positive troponin Referring Provider: MARCE CARDOZO MD Exam/Review of Systems Vital Signs Vitals Vital Signs Date Time Temp Pulse Resp B/P Pulse Ox O2 Delivery O2 Flow Rate FiO2 10/27/16 08:05 91 10/27/16 07:12 97.8 17 109/55 96 10/27/16 04:00 Room Air 10/25/16 20:00 2.0 28 Intake and Output 10/26/16 10/26/16 10/27/16 15:00 23:00 07:00 Intake Total 500 ml 250 ml Output Total 2500 ml 2000 ml Balance -2000 ml -1750 ml Exam Review of Systems: CONSTITUTIONAL: No fevers, chills. PULMONARY: No sob CARDIOVASCULAR: No chest pain/palpitations GASTROINTESTINAL: No nausea/vomiting. GENITOURINARY: No hematuria/dysuria. MUSCULOSKELETAL: No myagias/arthalgias. PSYCHIATRIC: The patient denies depression. NEUROLOGIC: No weakness Constitutional: alert, oriented Psych: no complaints Head: normocephalic ENMT: mucosa pink and moist Neck: non-tender, supple Respiratory: diminished breath sounds (at bases/B) Cardiovascular: regular rate and rhythm Gastrointestinal: non-tender, soft Musculoskeletal: muscle tone (normal) Extremities: edema (none) Results Result Diagram: 10/27/16 0350 10/26/16 1637 Results 24 hrs Laboratory Tests Test 10/26/16 16:37 10/26/16 20:55 10/27/16 03:50 10/27/16 09:57 Anion Gap 18 H Blood Urea Nitrogen 34 H Calcium Level 8.4 Carbon Dioxide Level 28 Chloride Level 98 Creatinine 5.68 H Glucose Level 156 Potassium Level 3.6 Sodium Level 140 Activated Partial Thromboplast Time 52.4 H 68.3 H 88.8 *H Basophils # 0.0 Basophils % 0.6 Blood Morphology Comment Creatine Kinase 44 Creatine Kinase Index 1.8 Creatinine Kinase MB (Mass) 0.79 Eosinophils # 0.1 Eosinophils % 1.4 Hematocrit 27.8 L Hemoglobin 9.2 L Lymphocytes # 0.9 Lymphocytes % 19.1 Mean Corpuscular Hemoglobin 30.7 Mean Corpuscular Hemoglobin Concent 33.2 Mean Corpuscular Volume 92.6 Mean Platelet Volume 7.6 Monocytes # 0.5 Monocytes % 10.7 Neutrophils # 3.3 Neutrophils % 68.2 Nucleated Red Blood Cells # 0.0 Nucleated Red Blood Cells % 0.0 Platelet Count 62 #L Red Blood Count 3.00 L Red Cell Distribution Width 16.2 H Troponin I 0.244 *H White Blood Count 4.9 Medications Medications Current Medications Diltiazem HCl (Cardizem-D5W 125 Mg/125 ml Drip) 125 ml @ 5 mls/hr TITRATE IV Last administered on 10/25/16 14:32; Admin Dose 5 MLS/HR; Start 10/25/16 at 13: 30 Acetaminophen (Tylenol Tab) 650 mg Q6H PRN PO PAIN LEVEL 1-3 OR FEVER Last administered on 10/26/16 10:05; Admin Dose 650 MG; Start 10/25/16 at 16:30 Acetaminophen/ Hydrocodone Bitart ([place] (5/325)) 1 tab Q6H PRN PO MODERATE PAIN LEVEL 4-6; Start 10/25/16 at 16:30 Docusate Sodium (Colace) 100 mg Q12H PRN PO CONSTIPATION; Start 10/25/16 at 16: 30 Pantoprazole (Protonix Tab) 40 mg DAILY@06 PO Last administered on 10/27/16 06 :44; Admin Dose 40 MG; Start 10/26/16 at 06:00 Albuterol (Ventolin Hfa) 2 puff Q6H PRN INH WHEEZING AND SOB; Start 10/25/16 at 16:30 Benzonatate (Tessalon) 100 mg Q8H PRN PO COUGH Last administered on 10/26/16 21:00; Admin Dose 100 MG; Start 10/25/16 at 16:30 Multivit/Ca Carb/ B Cmplx/FA/Prenat (Angelica-Janette) 1 tab DAILY PO Last administered on 10/26/16 09:56; Admin Dose 1 TAB; Start 10/26/16 at 09:00 Metoprolol Tartrate 50 mg 50 mg BID PO Last administered on 10/25/16 22:21; Admin Dose 50 MG; Start 10/25/16 at 21:00 Heparin Sodium (Porcine) (Heparin 09914 Units/250 ml) 250 ml @ 0 mls/hr Q24H IV Last administered on 10/26/16 04:23; Admin Dose 7 MLS/HR; Start 10/25/16 at 20:00 Heparin Sodium (Porcine) (Heparin (1000 Units/ml)) PRN PRN IV PENDING LAB VALUE; Start 10/25/16 at 20:00 Metoprolol Tartrate (Lopressor) 5 mg Q4H PRN IV HR>110 Hold SBP<100; Start 09/29 at 20:00 Nifedipine (Procardia Xl) 30 mg BID PO ; Start 10/26/16 at 21:00 NAUN SANABRIA Oct 27, 2016 11:37
--- NOTE | 2016-10-27 15:05 | CARRPT ---
DATE OF PROCEDURE: 10/27/2016 LEXISCAN CARDIOLITE STRESS TEST REASON FOR STRESS TESTING: Positive troponin, assess significance. BASELINE VITAL SIGNS AND ELECTROCARDIOGRAM: Pulse 111, blood pressure 131/95. Electrocardiogram wi th atrial fibrillation, rate of 111 with right axis deviation, septal Q's and nonspecific ST abnorma lities. PROCEDURE: The patient underwent standard Lexiscan infusion protocol over 10 seconds followed by ra diolabeled tracer. The patient's test was stopped due to completion of protocol. Maximal achieved blood pressure during the test 123/74. Maximum achieved heart rate during the test 122. ELECTROCARDIOGRAM FINDINGS: The patient did not develop any new Lexiscan-induced ST or T-wave hammond es from baseline abnormalities. No documented PVCs. The patient remained in atrial fibrillation th roughout stress testing. SYMPTOMS: The patient had complained of shortness breath during the stress test that resolved in re covery. No chest pain. IMPRESSION: 1. No Lexiscan-induced ST or T-wave changes from baseline abnormalities that are diagnostic of card iac ischemia. 2. Complaints of shortness of breath during stress test that resolved in recovery. 3. Rare premature ventricular contractions during stress testing. 4. Report of nuclear images to follow in separate dictation. Dictated By: NAUN MILES/VIVIAN Conf#: [id number] DID#: [id number]
[2016-10-27] MEDS: BENZONATATE 100 MG CAP PO PRN (15:39)
--- NOTE | 2016-10-27 17:04 | RADRPT ---
PROCEDURE: Nuclear medicine myocardial stress and rest scan. CLINICAL INDICATION: Chest pain. Elevated troponin. TECHNIQUE: The patient was stressed with 0.4 mg IV Lexiscan. 10.4 mCi technetium 99m Tetrofosmin (Myoview) was administered rest. 31.7 mCi technetium 99m Tetrofosmin (Myoview) was administered du ring stress. Images were obtained and reconstructed in the short axis, horizontal long axis, and ve rtical long axis. Gated images were obtained and ejection fraction was calculated. COMPARISON: No prior study is available for comparison. FINDINGS: The stress and rest images demonstrate normal uptake throughout. There is no fixed abnormality or r eversible abnormality. There is no evidence of transient ischemic dilatation. Wall motion is normal. There is normal wall thickening during systole. Ejection fraction at stress is 58%. IMPRESSION: 1. No evidence of stress induced myocardial ischemia. 2. Ejection fraction at stress is 58%. RPTAT: QQ .Magan Pitts MD, Date Time Electronically viewed and signed by .Magan Pitts MD, on 10/27/2016 13:31 .R/
--- NOTE | 2016-10-27 18:36 | PDOCDIS ---
Discharge Instructions CONDITION Patient Condition: Good ACTIVITY: Activity Restrictions: Slowly Increase Activity FOLLOW UP/APPOINTMENTS Appointments f/u own pcp [address] carbajal 1 wk MARCE CARDOZO MD Oct 27, 2016 18:36
[2016-10-27] MEDS ORDERED: ASPI-664 PO (18:39)
[2016-10-27] MEDS ORDERED: NIFE30TA2 PO (18:39)
[2016-10-27] MEDS ORDERED: METO-429 PO (18:39)
--- NOTE | 2016-10-27 18:43 | PN ---
Date/Time of Note Date/Time of Note DATE: 10/27/16 TIME: 18:42 Assessment/Plan VTE Prophylaxis VTE Prophylaxis Intervention: other Lines/Catheters IV Catheter Type (from Nrs): Peripheral IV Assessment/Plan Chief Complaint/Hosp Course AFIB HTN ESRD ANEMIA HX CABG richelle neg PLAN PER ORDER CARDIO home Problems: Subjective 24 Hr Interval Summary Cardiovascular: no complaints Gastrointestinal: no complaints Exam/Review of Systems Vital Signs Vitals Vital Signs Date Time Temp Pulse Resp B/P Pulse Ox O2 Delivery O2 Flow Rate FiO2 10/27/16 16:10 109 10/27/16 15:28 98.1 18 121/64 94 10/27/16 04:00 Room Air 10/25/16 20:00 2.0 28 Intake and Output 10/26/16 10/26/16 10/27/16 15:00 23:00 07:00 Intake Total 500 ml 250 ml Output Total 2500 ml 2000 ml Balance -2000 ml -1750 ml Exam Respiratory: clear to auscultation Cardiovascular: regular rate and rhythm Gastrointestinal: soft Extremities: normal pulses Results Result Diagram: 10/27/16 0350 10/26/16 1637 Results 24 hrs Laboratory Tests Test 10/26/16 20:55 10/27/16 03:50 10/27/16 09:57 Activated Partial Thromboplast Time 52.4 H 68.3 H 88.8 *H Basophils # 0.0 Basophils % 0.6 Blood Morphology Comment Creatine Kinase 44 Creatine Kinase Index 1.8 Creatinine Kinase MB (Mass) 0.79 Eosinophils # 0.1 Eosinophils % 1.4 Hematocrit 27.8 L Hemoglobin 9.2 L Lymphocytes # 0.9 Lymphocytes % 19.1 Mean Corpuscular Hemoglobin 30.7 Mean Corpuscular Hemoglobin Concent 33.2 Mean Corpuscular Volume 92.6 Mean Platelet Volume 7.6 Monocytes # 0.5 Monocytes % 10.7 Neutrophils # 3.3 Neutrophils % 68.2 Nucleated Red Blood Cells # 0.0 Nucleated Red Blood Cells % 0.0 Platelet Count 62 #L Red Blood Count 3.00 L Red Cell Distribution Width 16.2 H Troponin I 0.244 *H White Blood Count 4.9 Medications Medications Current Medications Diltiazem HCl (Cardizem-D5W 125 Mg/125 ml Drip) 125 ml @ 5 mls/hr TITRATE IV Last administered on 10/25/16t 14:32; Admin Dose 5 MLS/HR; Start 10/25/16 at 13: 30 Acetaminophen (Tylenol Tab) 650 mg Q6H PRN PO PAIN LEVEL 1-3 OR FEVER Last administered on 10/26/16 10:05; Admin Dose 650 MG; Start 10/25/16 at 16:30 Acetaminophen/ Hydrocodone Bitart ([place] (5/325)) 1 tab Q6H PRN PO MODERATE PAIN LEVEL 4-6; Start 10/25/16 at 16:30 Docusate Sodium (Colace) 100 mg Q12H PRN PO CONSTIPATION; Start 10/25/16 at 16: 30 Pantoprazole (Protonix Tab) 40 mg DAILY@06 PO Last administered on 10/27/16 06 :44; Admin Dose 40 MG; Start 10/26/16 at 06:00 Albuterol (Ventolin Hfa) 2 puff Q6H PRN INH WHEEZING AND SOB; Start 10/25/16 at 16:30 Benzonatate (Tessalon) 100 mg Q8H PRN PO COUGH Last administered on 10/27/16 15:39; Admin Dose 100 MG; Start 10/25/16 at 16:30 Multivit/Ca Carb/ B Cmplx/FA/Prenat (Angelica-Janette) 1 tab DAILY PO Last administered on 10/26/16 09:56; Admin Dose 1 TAB; Start 10/26/16 at 09:00 Metoprolol Tartrate 50 mg 50 mg BID PO Last administered on 10/27/16 15:33; Admin Dose 50 MG; Start 10/25/16 at 21:00 Heparin Sodium (Porcine) (Heparin 20676 Units/250 ml) 250 ml @ 0 mls/hr Q24H IV Last administered on 10/26/16 04:23; Admin Dose 7 MLS/HR; Start 10/25/16 at 20:00; Status Future Hold Heparin Sodium (Porcine) (Heparin (1000 Units/ml)) PRN PRN IV PENDING LAB VALUE; Start 10/25/16 at 20:00; Status Future Hold Metoprolol Tartrate (Lopressor) 5 mg Q4H PRN IV HR>110 Hold SBP<100; Start 09/29 at 20:00 Nifedipine (Procardia Xl) 30 mg BID PO Last administered on 1/14/17at 15:33; Admin Dose 30 MG; Start 10/26/16 at 21:00 Heparin Sodium (Porcine) (Heparin (5000 Units/0.5 ml)) 5,000 unit BID SC ; Start 10/27/16 at 21:00 MARCE CARDOZO MD Oct 27, 2016 18:42
[2016-10-27] MEDS ORDERED: HEPARIN 5,000 UNIT/0.5 ML SYG SC SCH (21:00)
[2016-10-28] VITALS: BP 131/84; PULSE 110; PULSE 127; RESP 20
[2016-10-28 04:00] VITALS: BP 104/63; PULSE 100; PULSE 129; RESP 18
[2016-10-28] MEDS: PANTOPRAZOLE (EC) 40 MG TAB PO SCH (06:18)
[2016-10-28 07:28] VITALS: BP 109/69; RESP 18
[2016-10-28] MEDS: SEVELAMER 800 MG TAB PO SCH ×2 (08:16→11:34)
[2016-10-28] MEDS: NIFEdipine (XL) 30 MG TAB PO SCH (08:16)
[2016-10-28] MEDS: METOPROLOL 50 MG TAB PO SCH (08:16)
[2016-10-28] MEDS: MULTIVIT/CA CARB/B CMPLX/FA TAB PO SCH (08:16)
[2016-10-28 08:20] VITALS: PULSE 111
[2016-10-28] MEDS: BENZONATATE 100 MG CAP PO PRN (11:34)
[2016-10-28 11:37] VITALS: BP 112/68; RESP 17
[2016-10-28 12:31] LABS: BASOPHILS % 0.6 % (0.0-2.0); EOSINOPHILS # 0.1 10^3/ul (0.0-0.5); EOSINOPHILS % 1.6 % (0.0-7.0); HEMOGLOBIN 9.6 g/dl (14.0-18.0); LYMPHOCYTES # 0.9 10^3/ul (0.8-2.9); LYMPHOCYTES % 16.3 % (15.0-51.0); MEAN CORPUSCULAR HGB CONC 33.3 g/dl (32.0-37.0); MEAN PLATELET VOLUME 8.3 fl (7.4-10.4); MONOCYTE # 0.7 10^3/ul (0.3-0.9); MONOCYTES % 12.8 % (0.0-11.0); NEUTROPHIL # 3.6 10^3/ul (1.6-7.5); NEUTROPHILS % 68.7 % (39.0-77.0); PLATELET COUNT 69 10^3/UL (140-440); RED BLOOD COUNT 3.12 10^6/ul (4.70-6.10); RED CELL DISTRIBUTION WIDTH 15.8 % (11.5-14.5); UNCORRECTED WBC 5.3 10^3/ul (4.8-10.8); WHITE BLOOD COUNT 5.3 10^3/ul (4.8-10.8)
[2016-10-28 12:43] LABS: CONDITION 1; LH ANALYZER COMMENTS 1
[2016-10-28 14:43] VITALS: PULSE 105
--- NOTE | 2016-10-30 10:57 | RADRPT ---
Vent Rate: 102 bpm RR Interval: 0 msec MT Interval: 0 msec QRS Duration: 92 msec QT Interval: 376 msec QTC Interval: 490 msec P-R-T [place]: 0 - 88 - 78 degrees Atrial fibrillation with rapid ventricular response with a competing junctional pacemaker Anteroseptal infarct , age undetermined Abnormal ECG Electronically Signed By: Timbo Milligan [id number]
== END 2016-10-28 13:20 | disposition home or self-care (01) | DRG 308 ==
LOC: E/R 11:10 → MS4 16:29
PROVIDERS: ADMIT Internal Medicine Nephrology; ATTEND Internal Medicine Nephrology
DX: I48.91 Unspecified atrial fibrillation (principal); N18.6 End stage renal disease; I13.2 Hypertensive heart and chronic kidney disease with heart failure and with stage 5 chronic kidney disease, or end stage renal disease; Z95.1 Presence of aortocoronary bypass graft; R05 Cough; Z99.2 Dependence on renal dialysis; Z87.891 Personal history of nicotine dependence; I50.9 Heart failure, unspecified; E78.5 Hyperlipidemia, unspecified
CPT/HCPCS: 36415; 71010; 78452; 80048; 80053; 80061; 82550; 82553; 82962; 84484; 85025; 85610; 85730; 87081; 90935; 93005; 93017; 93306; 96374; 96375; A9500; A9505; J1644; J2785; J7040

== ENCOUNTER 2016-12-23 16:06 | Inpatient (IN) | END 2016-12-29 13:48 | disposition home or self-care (01) | DRG 280 | DX: I48.91 Unspecified atrial fibrillation (principal); I50.23 Acute on chronic systolic (congestive) heart failure; I21.4 Non-ST elevation (NSTEMI) myocardial infarction; E87.0 Hyperosmolality and hypernatremia; I12.0 Hypertensive chronic kidney disease with stage 5 chronic kidney disease or end stage renal disease; N18.6 End stage renal disease; I95.9 Hypotension, unspecified; D69.6 Thrombocytopenia, unspecified; E11.649 Type 2 diabetes mellitus with hypoglycemia without coma; I48.92 Unspecified atrial flutter; E78.5 Hyperlipidemia, unspecified; D53.9 Nutritional anemia, unspecified; I25.10 Atherosclerotic heart disease of native coronary artery without angina pectoris; E87.5 Hyperkalemia; I25.2 Old myocardial infarction; Z95.1 Presence of aortocoronary bypass graft ==